=== PATIENT | female | born 1985 | race Two or more races ===

== ENCOUNTER 2017-07-26 21:06 | Observation (INO) | payer OTHER ==
[~2017-07-26] VITALS: Ht 162.6 cm; Wt 117.1 kg
[2017-07-26 21:00] VITALS: BP 146/89; PULSE 105; RESP 18; TEMP 96.1; O2SAT 99
[2017-07-26] MEDS ORDERED: ENOXAPARIN SODIUM 40 MG/0.4 ML SYRINGE SQ SCH (22:45)
[2017-07-26] MEDS ORDERED: ONDANSETRON HCL 4 MG/2 ML VIAL IVP PRN (22:45)
[2017-07-26] MEDS ORDERED: NALOXONE HCL 0.4 MG/ML AMP IV PUSH PRN (22:45)
[2017-07-26] MEDS ORDERED: ENALAPRILAT 1.25 MG/ML VIAL IV PUSH PRN (22:45)
[2017-07-26] MEDS ORDERED: METOPROLOL TARTRATE 50 MG TAB PO ONE (22:45)
[2017-07-26] MEDS ORDERED: SODIUM CHLORIDE 0.9% FLUSH 10 ML FLUSH IV FLUSH PRN (22:45)
[2017-07-26] MEDS: ACETAMINOPHEN 325 MG TAB PO PRN (23:05)
[2017-07-27] VITALS: BP 139/90; PULSE 89; RESP 18; TEMP 96.6; O2SAT 98
[2017-07-27 04:00] VITALS: BP 113/66; PULSE 73; RESP 18; TEMP 98.2; O2SAT 99
[2017-07-27] MEDS: ACETAMINOPHEN 325 MG TAB PO PRN ×2 (04:43→08:55)
[2017-07-27 06:53] LABS: AUTOMATED NEUTROPHIL # 4.6 TH/MM3 (1.8-7.7); BASOPHIL % 0.4 % (0.0-2.0); EOSINOPHIL # 0.3 TH/MM3 (0-0.4); EOSINOPHIL % 2.6 % (0.0-4.0); HEMATOCRIT 39.1 % (35.0-46.0); HEMO FLAGS DIFF FINAL; LYMPH % 40.6 % (9.0-44.0); MEAN CORPUSCULAR HGB CONC 33.3 % (32.0-36.0); MONO % 8.7 % (0.0-8.0); NEUT % 47.7 % (16.0-70.0); PLATELET COUNT 515 TH/MM3 (150-450); RED BLOOD COUNT 5.01 MIL/MM3 (4.00-5.30); RED CELL DISTRIBUTION WIDTH 13.6 % (11.6-17.2); WHITE BLOOD COUNT 9.8 TH/MM3 (4.0-11.0)
[2017-07-27 07:06] LABS: POTASSIUM 3.9 MEQ/L (3.5-5.1)
[2017-07-27 07:12] LABS: BICARBONATE 27.4 MEQ/L (21.0-32.0)
[2017-07-27 09:00] VITALS: BP 113/71; PULSE 74; RESP 15; TEMP 96.8; O2SAT 99
[2017-07-27] MEDS ORDERED: SODIUM CHLORIDE 0.9% FLUSH 10 ML FLUSH IV FLUSH SCH (09:00)
[2017-07-27] MEDS ORDERED: INFLUENZA VIRUS VACCINE (QUADRIVALENT) 0.5 ML SYR IM ONE (09:00)
[2017-07-27] MEDS ORDERED: METOPROLOL TARTRATE 50 MG TAB PO SCH (09:00)
--- NOTE | 2017-07-27 11:05 | HHI.HP ---
[facility] Service [place] [facility] Primary Care Physician No Primary Care Physician Admission Diagnosis Diagnoses: (1) Cephalgia Diagnosis: Principal (2) Hypertensive emergency Chief Complaint: Headache Travel History International Travel<30 Days: No Contact w/Intl Traveler <30 Da: No Traveled to Known Affected Are: No History of Present Illness Written by Naif Talbot, acting as scribe for Dr. Yan on 07/27/17 at 10:56. 31-year-old female with known history of PCOS, hypertension who presented to hospital because of headache. Patient states that she does have long history of hypertension since she was 15 years old. She usually is on metoprolol 50 mg twice daily. However he is not taking it for over 7 months because of not having a primary medical doctor. 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 She had a monitoring of blood pressure and has been 160/105, 173/110. He states that her blood pressure has been more elevated and she has been feeling palpitations more frequently. Patient got off work yesterday morning and she had a feeling of heart racing, and headache. She went to sleep and she woke up at 12 noon she woke up with severe pounding left-sided posterior headache. He took Aleve without any improvement. Patient went to the emergency department for evaluation. Patient blood pressure was 208 /119 patient was given Apresoline and metoprolol with significant improvement of her blood pressure. Laboratory studies were performed which did not indicate any end organ damage. It was recommended by ER physician that the patient be observed for further evaluation and management. At the time evaluating the patient and her blood pressure is stable. Her headache has significantly improved. She still having episodes of palpitations. She denies any chest pain, shortness of breath, dyspnea, nausea, vomiting, diaphoresis, bowel pain Review of Systems Cardiovascular: COMPLAINS OF: Palpitations Neurologic: COMPLAINS OF: Headache Except as stated in HPI: all other systems reviewed are Neg Past Family Social History Past Medical History Hypertension PCOS Past Surgical History Uterine polyp removal Reported Medications Patient is not taking any medications Allergies: Coded Allergies: No Known Allergies (Unverified , 07/26/17) Family History Reviewed is significant for grandfather at age 44 from myocardial infarction. Grandmother with diabetes Social History Patient quit smoking 3 years ago, prior to that she smoked a quarter pack a cigarettes a day since she was 15 years old. Patient denies any alcohol or illicit drugs Physical Exam Vital Signs Vital Signs Date Time Temp Pulse Resp B/P (MAP) Pulse Ox O2 Delivery O2 Flow Rate FiO2 07/27/17 09:00 96.8 74 15 113/71 (85) 99 07/27/17 04:00 98.2 73 18 113/66 (82) 99 07/27/17 00:00 96.6 89 18 139/90 (106) 98 07/26/17 21:00 96.1 105 18 146/89 (108) 99 Physical Exam GENERAL: Well-developed, well-nourished, NAD HEENT: Head is normocephalic without any lesions or masses noted. Facial features are symmetric. Eyes: Pupils equal round reactive to light. Extraocular muscles are intact. Conjunctivae were clear. Oropharyngeal: Pharynx without any erythema edema. Tongue is midline without deviation. Buccal mucosa is moist without any masses or lesions. NECK: . No JVD, no bruits are appreciated CARDIAC: Regular rhythm, regular rate. S1/S2 are heard. No murmurs gallops or rubs. LUNGS: Clear to auscultation bilaterally. No wheeze, rhonchi or rales. No use of accessory muscles on inspiration or expiration. ABDOMEN: Soft, nontender. Nondistended. Bowel sounds heard in all 4 quadrants. No organomegaly or masses. Negative rebound, negative guarding EXTREMITIES: No edema, pulses are equal bilaterally. No cyanosis or clubbing NEUROLOGY: No facial droop, no slurred speech. No focal extremity deficits Psychiatry: Appropriate mood and affect Laboratory Laboratory Tests Test 07/27/17 05:45 White Blood Count 9.8 Red Blood Count 5.01 Hemoglobin 13.0 Hematocrit 39.1 Mean Corpuscular Volume 78.0 Mean Corpuscular Hemoglobin 26.0 Mean Corpuscular Hemoglobin Concent 33.3 Red Cell Distribution Width 13.6 Platelet Count 515 Mean Platelet Volume 7.5 Neutrophils (%) (Auto) 47.7 Lymphocytes (%) (Auto) 40.6 Monocytes (%) (Auto) 8.7 Eosinophils (%) (Auto) 2.6 Basophils (%) (Auto) 0.4 Neutrophils # (Auto) 4.6 Lymphocytes # (Auto) 4.0 Monocytes # (Auto) 0.9 Eosinophils # (Auto) 0.3 Basophils # (Auto) 0.0 CBC Comment DIFF FINAL Differential Comment Blood Urea Nitrogen 14 Creatinine 0.74 Random Glucose 79 Calcium Level 9.5 Sodium Level 138 Potassium Level 3.9 Chloride Level 102 Carbon Dioxide Level 27.4 Anion Gap 9 Estimat Glomerular Filtration Rate 92 Result Diagram: 07/27/1754407/27/17544 Caprini VTE Risk Assessment Caprini VTE Risk Assessment: No/Low Risk (score <= 1) Caprini Risk Assessment Model Point Value = 1 Point Value = 2 Point Value = 3 Point Value = 5 Age 41-60 Minor surgery BMI > 25 kg/m2 Swollen legs Varicose veins or History of unexplained or recurrent spontaneous Oral contraceptives or hormone replacement Sepsis (< 1 month) Serious lung disease, including pneumonia (< 1 month) Abnormal pulmonary function Acute myocardial infarction Congestive heart failure (< 1 month) History of inflammatory bowel disease Medical patient at bed rest Age 61-74 Arthroscopic surgery Major open surgery (> 45 min) Laparoscopic surgery (> 45 min) Malignancy Confined to bed (> 72 hours) Immobilizing plaster cast Central venous access Age >= 75 History of VTE Family history of VTE Factor V Leiden Prothrombin [id number] Lupus anticoagulant Anticardiolipin antibodies Elevated serum homocysteine Heparin-induced thrombocytopenia Other congenital or acquired thrombophilia Stroke (< 1 month) Elective arthroplasty Hip, pelvis, or leg fracture Acute spinal cord injury (< 1 month) Prophylaxis Regimen Total Risk Factor Score Risk Level Prophylaxis Regimen 0-1 Low Early ambulation 2 Moderate Order ONE of the following: *Sequential Compression Device (SCD) *Heparin 5000 units SQ BID 3-4 Higher Order ONE of the following medications: *Heparin 5000 units SQ TID *Enoxaparin/Lovenox 40 mg SQ daily (WT < 150 kg, CrCl > 30 mL/min) *Enoxaparin/Lovenox 30 mg SQ daily (WT < 150 kg, CrCl > 10-29 mL/min) *Enoxaparin/Lovenox 30 mg SQ BID (WT < 150 kg, CrCl > 30 mL/min) AND/OR *Sequential Compression Device (SCD) 5 or more Highest Order ONE of the following medications: *Heparin 5000 units SQ TID (Preferred with Epidurals) *Enoxaparin/Lovenox 40 mg SQ daily (WT < 150 kg, CrCl > 30 mL/min) *Enoxaparin/Lovenox 30 mg SQ daily (WT < 150 kg, CrCl > 10-29 mL/min) *Enoxaparin/Lovenox 30 mg SQ BID (WT < 150 kg, CrCl > 30 mL/min) AND *Sequential Compression Device (SCD) Assessment and Plan Assessment and Plan HTN emergency - resolved Due to medication noncompliance End organ damage appears to have reverse with near resolution of headache. We'll renew patient's metoprolol 50 mg twice daily Patient was counseled on appropriate outpatient follow-up on continuation of home medications Cephalgia, likely secondary to accelerated hypertension CT scan of brain did not indicate any acute abnormality Palpitations Offered patient help to monitor for further evaluation. Patient deferring this time and states that she will have it done by her primary medical doctor or performance consultant DVT prevention Low risk, early ambulation Discharge disposition Discharge home in stable condition Activity: Ad mel. Diet: Healthy heart diet Medications per medication reconciliation Follow-up with primary medical doctor one week This note was transcribed by jesse Talbot. I, Scar Yan, personally performed the history, physical exam, and medical decision making; and confirmed the accuracy of information in the transcribed note. Authenticated by Scar Yan at 11:05 am on 07/27/17. The discharge order entered by Mayank Talbot was at my discretion. I independently reviewed EKG film and see normal sinus rhythm. Naif Talbot Jul 27, 2017 11:05 Scar Yan MD Jul 27, 2017 13:07
[2017-07-27] MEDS ORDERED: METO-309 PO (11:06)
--- NOTE | 2017-07-27 11:06 | HHI.DCPOC ---
Discharge Care Plan Diagnosis: (1) Accelerated hypertension Goals to Promote Your Health * To prevent worsening of your condition and complications * To maintain your health at the optimal level Directions to Meet Your Goals Take your medications as prescribed Follow your dietary instruction Follow activity as directed Keep your appointments as scheduled Take your immunizations and boosters as scheduled If your symptoms worsen call your PCP, if no PCP go to Urgent Care Center or Emergency Room Smoking is Dangerous to Your Health. Avoid second hand smoke Call the 24-hour hour crisis hotline for domestic abuse at Naif Talbot Jul 27, 2017 11:06
--- NOTE | 2017-07-27 22:09 | EKG ---
Date Performed: 07/26/2017 Time Performed: 22:41:35 PTAGE: 31 years EKG: Sinus rhythm WITH SINUS ARRHYTHMIA NORMAL ECG Compared to prior tracing no significant change DOCTOR: Consuelo Burns Interpretating Date/Time 07/27/2017 22:08:57
== END 2017-07-27 17:40 | disposition home or self-care (01) ==
LOC: PHEDDLT 21:06 → PH3A 21:08 → UNDOADMOB 21:08 → UNDODISOB 07-27 17:40
PROVIDERS: ADMIT Hospitalist; ATTEND Hospitalist
DX: I10 Essential (primary) hypertension (principal); R51 Headache; R00.2 Palpitations; E28.2 Polycystic ovarian syndrome; N94.89 Other specified conditions associated with female genital organs and menstrual cycle; Z87.891 Personal history of nicotine dependence; Z91.14 Patient's other noncompliance with medication regimen; Z79.899 Other long term (current) drug therapy
CPT/HCPCS: 70450; 71010; 80048; 80053; 84484; 84702; 85025; 85610; 85730; 93005; G0378; J0360; J2405